=== PATIENT | male | born 1950 | race Asian ===

== ENCOUNTER → 2020-12-05 | Outpatient (CLI) | payer BC, OTHER | END | disposition home or self-care (01) | LOC: INF 14:09 | PROVIDERS: ATTEND Internal Medicine | DX: Z23 Encounter for immunization (principal) | CPT/HCPCS: 96372 ==

== ENCOUNTER 2020-12-29 14:09 | Outpatient (CLI) | payer OTHER | END 2020-12-29 23:59 | disposition home or self-care (01) | LOC: INF 14:09 | PROVIDERS: ATTEND Internal Medicine | DX: Z23 Encounter for immunization (principal) | CPT/HCPCS: 96372 ==

== ENCOUNTER 2021-12-06 16:13 | Outpatient (CLI) | payer BC, OTHER | END 2021-12-06 19:42 | disposition home or self-care (01) | LOC: RAD 16:13 | PROVIDERS: ATTEND Internal Medicine | DX: I10 Essential (primary) hypertension (principal) ==

== ENCOUNTER → 2022-12-27 | Outpatient (CLI) | payer BC, OTHER | LOC: RAD 08:19 | PROVIDERS: ATTEND Internal Medicine | DX: R05.3 Chronic cough (principal) ==

== ENCOUNTER 2023-01-29 09:14 | Outpatient (CLI) | payer BC, OTHER | END 2023-01-29 19:19 | disposition home or self-care (01) | LOC: RAD 09:14 | PROVIDERS: ATTEND Internal Medicine | DX: S39.012A Strain of muscle, fascia and tendon of lower back, initial encounter (principal); Y92.89 Other specified places as the place of occurrence of the external cause ==